=== PATIENT | male | born 1980 | race Caucasian/White ===

== ENCOUNTER 2019-11-30 11:35 | Day surgery (SDC) | payer BC ==
[~2019-11-30] VITALS: Ht 182.9 cm; Wt 110.0 kg
[~2019-11-30 11:35] MED LIST: ALBU90OI INH; AMLO10 PO; BACL10 PO; CYCL10 PO; DIAZ5 PO; GUAI120S1 PO; NAPR500 PO; OMEP20ER PO; PENVK500 PO; SPACE CHAMBER1 EACH MC; TRAM50 PO; Zithromax250 MG PO
== END 2019-11-30 14:35 | disposition home or self-care (01) ==
LOC: ORSCSDS 11:35
PROVIDERS: Surgery
PROC: 0JB70ZZ Excision of Back Subcutaneous Tissue and Fascia, Open Approach (ICD-10-PCS; principal; 2019-11-30 13:00)
DX: D17.9 Benign lipomatous neoplasm, unspecified (principal); I10 Essential (primary) hypertension; K21.9 Gastro-esophageal reflux disease without esophagitis; Z87.891 Personal history of nicotine dependence; E78.5 Hyperlipidemia, unspecified; Z79.899 Other long term (current) drug therapy
CPT/HCPCS: 88304; J2250; J3010; J7120